=== PATIENT | female | born 1995 | race Caucasian/White ===

== ENCOUNTER 2018-04-14 22:52 | Emergency (ER) | payer SELFPAY ==
[~2018-04-14] VITALS: Ht 160 cm; Wt 56.7 kg
[2018-04-14] MEDS ORDERED: NKM (23:09)
[2018-04-14 23:17] VITALS: BP 118/80
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
[2018-04-15] VITALS: BP 115/76
== END 2018-04-15 | disposition home or self-care (01) ==
LOC: EMR 23:30
DX: T76.21XA Adult sexual abuse, suspected, initial encounter (principal); R10.30 Lower abdominal pain, unspecified
CPT/HCPCS: 99282

== ENCOUNTER 2018-04-15 20:39 | Emergency (ER) | payer SELFPAY ==
[~2018-04-15] VITALS: Ht 160 cm; Wt 49.9 kg
[~2018-04-15 20:39] MED LIST: NKM
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
[2018-04-15 21:48] VITALS: BP 109/64
== END 2018-04-15 21:48 | disposition home or self-care (01) ==
LOC: EMR 21:06
DX: N91.2 Amenorrhea, unspecified (principal)
CPT/HCPCS: 80307; 81025; 99283